=== PATIENT | female | born 1975 | race African-American/Black ===

== ENCOUNTER 2019-01-21 00:14 | Observation (INO) ==
[2019-01-21] MEDS ORDERED: DOCUSATE SODIUM 100 MG CAPSULE PO PRN (03:06)
[2019-01-21] MEDS ORDERED: MORPHINE 4 MG/1 ML VIAL IV PRN (03:06)
[2019-01-21] MEDS ORDERED: ONDANSETRON 4 MG/2 ML VIAL IV PRN (03:06)
[2019-01-21] MEDS ORDERED: NICOTINE 21 MG/24 HR PATCH TRANSDERM PRN (03:06)
[2019-01-21 05:17] LABS: Basophils % 0.2 % (0.0-0.8); Eosinophils % 0.4 % (0.00-10.9); Hematocrit 32.5 VOL% (35.7-47.0); Hemoglobin 10.1 GM/DL (12.0-16.0); Immature Granulocytes % 0.4 %; Immature Granulocytes Absolute 0.04 #; Lymphocytes # 1.9 10*3/uL (1.4-4.0); Lymphocytes % 20.3 % (21.3-54.2); Mean Corpuscular HGB Conc 31.1 GM/DL (32-36); Mean Corpuscular Volume 88.8 FL (87-102); Mean Platelet Volume 10.3 FL (9.6-12.0); Monocytes % 5.8 % (1.7-12.7); Neutrophils % 72.9 % (38.7-73.9); Platelet Count 351 T/CUMM (130-400); Red Blood Count 3.66 MC/CUMM (3.8-5.5); Red Cell Distribution Width 14.2 % (9.3-17.3); White Blood Count 9.1 T/CUMM (4-12)
[2019-01-21 05:52] LABS: Albumin 2.8 G/DL (3.4-5.0); Bilirubin,Total 0.4 MG/DL (0.2-1.0); Calcium 8.6 MG/DL (8.5-10.1); Risk Ratio 3.88; Thyroid Stimulating Hormone 3.72 uIU/ml (0.358-3.74); Total Protein 6.5 G/DL (6.4-8.3); VLDL CHOLESTEROL 12.4 MG/DL
[2019-01-21 06:27] LABS: Apearance,Urine CLEAR (Clear); Bilirubin,Urine Negative (Negative); Blood, Urine Small mg/dL (Negative); Glucose,Urine (UA) Negative (Negative); Ketones,Urine Negative (Negative); Mucus,Urine Occasional /LPF (Occasional); Nitrite,Urine Negative (Negative); Protein,Urine Negative; RBC,Urine 3 /HPF (0-4); Squamous Epithelial Cell,Urine Occasional /HPF (0-10); Urine Color Straw (Yellow); Urine Specific Gravity 1.011 (1.001-1.035); Urine Urobilinogen < 2.0 EU/DL (0.2-1.0); WBC,Urine 3 /HPF (0-6)
[2019-01-21] MEDS ORDERED: MAGNESIUM SULF RIDER 2 GM in PREMIX 1 EACH IV PRN (07:40)
[2019-01-21] MEDS ORDERED: MAGNESIUM SULF RIDER 4 GM in PREMIX 1 EACH IV PRN (07:40)
[2019-01-21] MEDS: ASPIRIN 325 MG TABLET PO SCH (09:55)
[2019-01-21] MEDS: PANTOPRAZOLE 40 MG TABLET PO SCH (09:55)
[2019-01-21] MEDS: ACETAMINOPHEN 325 MG TABLET PO PRN (10:03)
[2019-01-21] MEDS ORDERED: KETOROLAC 30 MG/1 ML VIAL IV PRN (11:03)
[2019-01-21 16:04] LABS: Barbiturates Screen,Urine Negative (Negative); Benzodiazepines Screen,Urine Negative (Negative); Cannabinoid Screen,Urine Negative (Negative); Opiate Screen,Urine Negative (Negative); Phencyclidine Screen,Urine Negative (Negative)
[2019-01-22 04:25] LABS: Basophils % 0.1 % (0.0-0.8); Eosinophils # 0.1 10*3/uL (0.0-0.87); Eosinophils % 0.8 % (0.00-10.9); Hematocrit 33.6 VOL% (35.7-47.0); Hemoglobin 10.3 GM/DL (12.0-16.0); Immature Granulocytes % 0.6 %; Immature Granulocytes Absolute 0.05 #; Lymphocytes # 1.6 10*3/uL (1.4-4.0); Lymphocytes % 18.6 % (21.3-54.2); Mean Corpuscular HGB Conc 30.7 GM/DL (32-36); Mean Corpuscular Volume 88.7 FL (87-102); Mean Platelet Volume 10.2 FL (9.6-12.0); Monocytes % 7.4 % (1.7-12.7); Neutrophils % 72.5 % (38.7-73.9); Platelet Count 333 T/CUMM (130-400); Red Blood Count 3.79 MC/CUMM (3.8-5.5); Red Cell Distribution Width 14.4 % (9.3-17.3); White Blood Count 8.6 T/CUMM (4-12)
[2019-01-22 04:41] LABS: Calcium 8.7 MG/DL (8.5-10.1); Osmolality,Calculated 283.1 MOS/KG (273-304)
[2019-01-22 04:47] LABS: % Iron Saturation 12.7 % (18-50)
[2019-01-22 04:55] LABS: Vitamin B12 351 PG/ML (211-911)
[2019-01-22 05:31] LABS: Sedimentation Rate-Westergren 79 MM/HR (0-20)
[2019-01-22] MEDS: ACETAMINOPHEN 325 MG TABLET PO PRN (09:07)
[2019-01-22] MEDS: PANTOPRAZOLE 40 MG TABLET PO SCH (09:08)
[2019-01-22] MEDS: FERROUS SULFATE 325 MG TABLET PO SCH (09:08)
[2019-01-22] MEDS: FOLIC ACID 1 MG TABLET PO SCH (09:08)
[2019-01-22] MEDS: ASPIRIN 325 MG TABLET PO SCH (09:08)
[2019-01-22] MEDS: FEXOFENADINE 180 MG TABLET PO SCH (12:40)
[2019-01-22] MEDS: IBUPROFEN 400 MG TABLET PO SCH ×2 (15:12→21:24)
[2019-01-22] MEDS: MECLIZINE 25 MG TABLET PO SCH ×2 (15:12→21:25)
[2019-01-22] MEDS: CYCLOBENZAPRINE 10 MG TABLET PO SCH ×2 (15:13→21:25)
[2019-01-22] MEDS: ACETAMINOPHEN 500 MG TABLET PO SCH (17:09)
[2019-01-22] MEDS: FLUTICASONE 50 MCG NASAL SPRAY 16 GM BOTTLE BOTH NARES SCH (21:24)
[2019-01-23] MEDS: ACETAMINOPHEN 500 MG TABLET PO SCH ×4 (00:26→17:37)
[2019-01-23] MEDS: FEXOFENADINE 180 MG TABLET PO SCH (08:39)
[2019-01-23] MEDS: FOLIC ACID 1 MG TABLET PO SCH (08:39)
[2019-01-23] MEDS: MECLIZINE 25 MG TABLET PO SCH ×2 (08:39→14:35)
[2019-01-23] MEDS: ASPIRIN 325 MG TABLET PO SCH (08:40)
[2019-01-23] MEDS: IBUPROFEN 400 MG TABLET PO SCH ×2 (08:40→14:35)
[2019-01-23] MEDS: FERROUS SULFATE 325 MG TABLET PO SCH (08:41)
[2019-01-23] MEDS: PANTOPRAZOLE 40 MG TABLET PO SCH (08:41)
[2019-01-23] MEDS: CYCLOBENZAPRINE 10 MG TABLET PO SCH ×2 (08:41→14:35)
[2019-01-23] MEDS: FLUTICASONE 50 MCG NASAL SPRAY 16 GM BOTTLE BOTH NARES SCH (08:43)
[2019-01-23 15:35] VITALS: BP 115/55
== END 2019-01-23 18:10 | disposition home or self-care (01) ==
LOC: N.TELES → SUATTDRO 02:37
PROVIDERS: ADMIT Internal Medicine; ATTEND Hospitalist